=== PATIENT | female | born 1955 | race Caucasian/White ===

== ENCOUNTER 2019-01-20 11:25 | Outpatient (CLI) | payer OTHER | END 2019-01-20 11:26 | disposition home or self-care (01) | LOC: DI.S 11:25 | PROVIDERS: ATTEND Physician Assistant Medical | DX: Z12.31 Encounter for screening mammogram for malignant neoplasm of breast (principal) | CPT/HCPCS: 77067 ==

== ENCOUNTER 2021-06-01 00:30 | Outpatient (CLI) | payer MEDICARE | END 2021-06-01 00:31 | disposition critical access hospital (66) | LOC: EMS 00:30 | DX: R10.31 Right lower quadrant pain (principal) | CPT/HCPCS: A0425; A0429 ==

== ENCOUNTER 2021-06-01 00:52 | Emergency (ER) | payer BC, MEDICARE, OTHER ==
[2021-06-01 01:25] LABS: BASOPHILS % (AUTO) 0.6 %; EOSINOPHILS # (AUTO) 0.2 10^3/uL (0.0-0.7); EOSINOPHILS % (AUTO) 2.3 %; HCT - HEMATOCRIT 39.8 % (37.0-47.0); HGB - HEMOGLOBIN 13.3 g/dL (12.0-16.0); LYMPHOCYTES # (AUTO) 2.1 10^3/uL (1.5-3.5); LYMPHOCYTES % (AUTO) 31.9 %; MEAN CORPUSCULAR HEMOGLOBIN 28.7 pg (27.0-31.0); MEAN CORPUSCULAR HGB CONC 33.4 g/dL (32.0-36.0); MEAN PLATELET VOLUME 9.1 fL (7.9-10.8); MONOCYTES # (AUTO) 0.5 10^3/uL (0.0-1.0); MONOCYTES % (AUTO) 8.2 %; NEUTROPHILS # (AUTO) 3.7 10^3/uL (1.5-6.6); NEUTROPHILS % (AUTO) 56.7 %; PLT - PLATELET COUNT 260 10^3/uL (130-450); RED BLOOD COUNT 4.63 10^6/uL (4.20-5.40); RED CELL DISTRIBUTION WIDTH 12.8 % (12.0-15.0); WHITE BLOOD COUNT 6.6 x10^3/uL (4.8-10.8)
[2021-06-01 01:39] LABS: ALBUMIN 4.3 g/dL (3.2-5.5); ALBUMIN/GLOBULIN RATIO 1.5 (1.0-2.2); BILIRUBIN,TOTAL 0.2 mg/dL (0.2-1.0); CALCIUM 9.2 mg/dL (8.5-10.3); CREATININE 0.6 mg/dL (0.4-1.0); POTASSIUM 3.8 mmol/L (3.5-5.0); TOTAL PROTEIN 7.1 g/dL (6.7-8.2)
--- NOTE | 2021-06-01 02:53 | ED Physician Documentation ---
PD HPI ABD PAIN - Stated complaint Stated Complaint: RLQ ABD PX - Chief complaint Chief Complaint: Abd Pain - History obtained from History obtained from: Patient - Additional information Additional information: Patient presenting for evaluation of right lower quadrant pain that started 90 minutes ago. Patient had eatenCookies that she had made with her grandchildren earlier today and she does not normally eat this. She was laying in bed and suddenly had a right lower quadrant pain that was sharp and intense. It was persistent for 90 minutes. She was concerned and called EMS. Since EMS arrival her pain has resolved. She had no associated nausea, vomiting, diarrhea. She does feel like she has been passing gas which is improved the pain. She denies fever, chest pain, difficulty breathing. She denies previous history of abdominal surgeries. Review of Systems Constitutional: denies: Fever Nose: denies: Congestion Cardiac: denies: Chest pain / pressure Respiratory: denies: Dyspnea, Cough GI: reports: Abdominal Pain. 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 - Allergies Allergies/Adverse Reactions: Allergies Allergy/AdvReac Type Severity Reaction Status Date / Time No Known Drug Allergies Allergy Verified 06/01/21 01:13 - Social History Does the pt smoke?: No Smoking Status: Never smoker Does the pt drink ETOH?: Yes Does the pt have substance abuse?: No - Immunizations Immunizations are current?: No Immunizations: TDAP >10years/unknown PD ED PE NORMAL - General General: Alert and oriented X 3, No acute distress, Well developed/nourished - HEENT HEENT: Atraumatic, Moist mucous membranes, Pharynx benign - Neck Neck: Supple, no meningeal sign - Cardiac Cardiac: RRR, No murmur, No gallop - Respiratory Respiratory: No respiratory distress, Clear bilaterally - Abdomen Abdomen: Normal bowel sounds, Soft, Non tender, Non distended - Back Back: No CVA TTP - Derm Derm: Normal color, Warm and dry - Extremities Extremities: No deformity, No edema - Neuro Neuro: No motor deficit, Normal speech - Psych Psych: Normal mood, Normal affect Results - Vitals Vitals: Vital Signs - 24 hr 06/01/21 01:04 Temperature 36.0 C L Heart Rate 66 Respiratory 15 Rate Blood Pressure 170/74 H O2 Saturation 99 Oxygen O2 Source Room air - Labs Labs: Laboratory Tests 06/01/21 06/01/21 01:21 01:21 WBC 6.6 RBC 4.63 Hgb 13.3 Hct 39.8 MCV 86.0 MCH 28.7 MCHC 33.4 RDW 12.8 Plt Count 260 MPV 9.1 Neut # (Auto) 3.7 Lymph # (Auto) 2.1 [place] # (Auto) 0.5 Eos # (Auto) 0.2 Baso # (Auto) 0.0 Absolute Nucleated RBC 0.00 Nucleated RBC % 0.0 Sodium 134 L Potassium 3.8 Chloride 98 L Carbon Dioxide 24 Anion Gap 12.0 BUN 22 H Creatinine 0.6 Estimated GFR (MDRD) 100 Glucose 120 H Calcium 9.2 Total Bilirubin 0.2 AST 27 ALT 34 Alkaline Phosphatase 59 Total Protein 7.1 Albumin 4.3 Globulin 2.8 Albumin/Globulin Ratio 1.5 Lipase 46 PD MEDICAL DECISION MAKING - ED course ED course: Patient with right lower quadrant Abdominal pain that persisted for 90 minutes and has since resolved. On exam she has no abdominal tenderness. Abdominal labs were ordered and essentially unremarkable. Patient remained pain-free in the emergency department. Patient agrees that emergent imaging is not needed at this time. I did discussed strict return precautions with the patient should the pain return or she develop any new symptoms. Departure - Departure Disposition: 01 Home, Self Care Clinical Impression: Abdominal pain Qualifiers: Abdominal location: right lower quadrant Qualified Code(s): R10.31 - Right lower quadrant pain Condition: Stable Instructions: ED Abdominal Pain Female Non-Specific Abdominal Pain Comments: The exact cause of your pain is unclear but does not appear to be a surgical emergency or life-threatening at this time. Please return the emergency depart ment should the pain return or you develop any new symptoms.
[2021-06-01 03:01] VITALS: BP 144/70
== END 2021-06-01 03:00 | disposition home or self-care (01) ==
LOC: ED 00:52 → SUPCPDRO 00:52 → MERGE 00:52 → ED 03:00
DX: R10.31 Right lower quadrant pain (principal)
CPT/HCPCS: 36415; 80053; 83690; 85025; 99282; 99284